=== PATIENT | male | born 1935 | race Caucasian/White ===

== ENCOUNTER 2017-12-19 20:45 | Emergency (ER) | payer OTHER ==
[2017-12-19] MEDS ORDERED: NS 1,000 ML IV ONE (20:54)
--- NOTE | 2017-12-19 20:54 | EDPHY ---
H & P Time Seen by Provider: 12/19/17 20:45 HPI/ROS: CHIEF COMPLAINT: Fever, confusion HISTORY OF PRESENT ILLNESS: The patient is an 82-year-old man with a history of polymyalgia rheumatica on prednisone 7 mg a day. His states that he felt normal this morning and left the house at 3:00 p.m. But when he returned at 5:00 p.m. And had chills and rigors and wanted to take a warm bath. Once he got onto the bath he vomited several times. He was then too weak to get out of the bath. They had to call neighbors to help him out of the bathtub. He was unable to ambulate with his own strength. No focal weakness or deficits. No chest pain or shortness of breath. has noticed some mild abdominal bloating over the last few days but assumed it was from the prednisone. The patient states he did have a normal bowel movement yesterday. No history of abdominal surgery. Severity: Severe Modifying factors: None REVIEW OF SYSTEMS: Constitutional: See HPI EENTM: denies: blurred vision, double vision, nose congestion Respiratory: denies: cough, shortness of breath Cardiac: denies: chest pain, irregular heart rate, lightheadedness, palpitations Gastrointestinal/Abdominal: See HPI Genitourinary: denies: dysuria, frequency, hematuria, pain Musculoskeletal: denies: joint pain, muscle pain Skin: denies: lesions, rash, jaundice, bruising Neurological: denies: headache, numbness, paresthesia, tingling, dizziness, weakness Hematologic/Lymphatic: denies: blood clots, easy bleeding, easy bruising Immunologic/allergic: denies: HIV/AIDS, transplant 10 systems reviewed and negative except as noted EXAM: GENERAL: Warm appearing, slightly confused Well-appearing, well-nourished and in no acute distress. HEAD: Atraumatic, normocephalic. EYES: Pupils equal round and reactive to light, extraocular movements intact, sclera anicteric, conjunctiva are normal. ENT: TMs normal, nares patent, oropharynx clear without exudates. Moist mucous membranes. NECK: Normal range of motion, supple without lymphadenopathy or JVD. LUNGS: Breath sounds clear to auscultation bilaterally and equal. No wheezes rales or rhonchi. HEART: Regular rate and rhythm without murmurs, rubs or gallops. ABDOMEN: Abdomen distended, nontender normoactive bowel sounds. No guarding, no rebound. No masses appreciated. BACK: No CVA tenderness, no spinal tenderness, step-offs or deformities EXTREMITIES: Normal range of motion, no pitting or edema. No clubbing or cyanosis. NEUROLOGICAL: Cranial nerves II through XII grossly intact. Normal speech, normal gait. 5/5 strength, normal movement in all extremities, normal sensation , normal reflexes PSYCH: Answers questions but not exactly correctly. SKIN: Warm, dry, normal turgor, no visible rashes or lesions. Source: Patient, Family, EMS Exam Limitations: No limitations - Medical/Surgical History Hx Asthma: No Hx Chronic Respiratory Disease: No Hx Diabetes: No Hx Cardiac Disease: No Hx Renal Disease: No Hx Cirrhosis: No Hx Alcoholism: No Hx HIV/AIDS: No Hx Splenectomy or Spleen Trauma: No Other PMH: Polymyalgia rheumatica - Family History Significant Family History: No pertinent family hx - Social History Alcohol Use: Sober Drug Use: None Constitutional: Initial Vital Signs Temperature (C) 38.3 C 12/19/17 20:48 Heart Rate 88 12/19/17 20:48 Respiratory Rate 16 12/19/17 20:48 Blood Pressure 160/83 H 12/19/17 20:48 O2 Sat (%) 100 12/19/17 20:48 O2 Delivery Mode Room Air Allergies/Adverse Reactions: No Known Allergies Allergy (Unverified 12/19/17 20:55) Home Medications: Medication Instructions Recorded predniSONE 12/19/17 Medical Decision Making - Diagnostics EKG Interpretation: An EKG obtained and was read and documented in trace view. Please see trace view for full reading and report. Sinus rhythm, no acute ischemic changes Imaging: Discussed imaging studies w/ senior account manager Radiologist Procedures: Procedure: Lumbar puncture. Indication: Fever, headache After verbal informed consent from patient explaining the risks including infection, bleeding, and neurologic damage, a lumbar puncture was performed after the patient was prepped and draped in the usual fashion. The back was anesthetized with 1% lidocaine. Blunt-tipped José Luis needle used. Approximately 4 cc of clear fluid was obtained. Opening pressure was not obtained. There were no complications. The procedure was performed by myself. ED Course/Re-evaluation: 11:00 p.m. the patient's vital signs remained stable. Lab work thus far is looking good. Small amount of blood in his urine likely from the traumatic Platt catheter. No sign of infection. His mental status appears to remain with slight confusion. He remains generally weak. Spoke with [facility] Dr. Pang who will accept in transfer to [facility]. We discussed the imaging and lab results thus far. I do plan to perform a lumbar puncture because we have not found another source for the patient's fever and he did complain of a mild headache. He is on prednisone. Flu result also pending still. Spoke with the patient and family about transfer to [facility] and they agree. 11:40 p.m. patient tolerated lumbar puncture. . He has been accepted at [facility] by Dr. Ramesh. They will send ambulance transfer paperwork completed. Differential Diagnosis: Partial list of the Differential diagnosis considered include but were not limited to; sepsis, urinary tract infection, influenza appendicitis, gastritis and although unlikely based on the history and physical exam, I also considered meningitis, CVA, acute coronary disease. - Data Points Laboratory Results: Laboratory Results 12/19/17 20:45 12/19/17 20:45 Microbiology Results: MICROBIOLOGY 12/19/17 23:38 Cerebral Spinal Fluid Gram Stain - Final Medications Given: Discontinued Medications Acetaminophen (Tylenol) 1,000 mg PO EDNOW ONE Stop: 12/19/17 21:22 Last Admin: 12/19/17 21:56 Dose: Not Given Acetaminophen (Tylenol Rectal) 325 mg AL EDNOW ONE Stop: 12/19/17 22:06 Last Admin: 12/19/17 22:11 Dose: 325 mg Acetaminophen (Tylenol Rectal) 650 mg AL EDNOW ONE Stop: 12/19/17 22:06 Last Admin: 12/19/17 22:11 Dose: 650 mg Sodium Chloride (Ns) 1,000 mls @ 0 mls/hr IV EDNOW ONE; Wide Open PRN Reason: Protocol Stop: 12/19/17 20:55 Last Admin: 12/19/17 21:09 Dose: 1,000 mls Ibuprofen (Motrin) 600 mg PO EDNOW ONE Stop: 12/19/17 21:22 Last Admin: 12/19/17 22:11 Dose: Not Given Ondansetron HCl (Zofran) 4 mg IVP EDNOW ONE Stop: 12/19/17 23:18 Last Admin: 12/19/17 23:00 Dose: 4 mg Ondansetron HCl (Zofran) 4 mg IVP EDNOW ONE Stop: 12/19/17 23:18 Last Admin: 12/20/17 00:58 Dose: Not Given Point of Care Test Results: Chemistry 12/19/17 21:49 POC Troponin I 0.02 ng/mL ng/mL (0.00-0.08) Departure - Departure Disposition: [facility] Clinical Impression: Generalized weakness Fever Qualifiers: Fever type: unspecified Qualified Code(s): R50.9 - Fever, unspecified Vomiting Qualifiers: Vomiting type: unspecified Vomiting Intractability: non-intractable Nausea presence: with nausea Qualified Code(s): R11.2 - Nausea with vomiting, unspecified Condition: Fair Referrals: Patient,NotPresent [Unknown] - As per Instructions
[2017-12-19] MEDS ORDERED: IOPAMIDOL (ISOVUE-300) 100 ML BTL ONE (21:17)
[2017-12-19] MEDS ORDERED: ACETAMINOPHEN 500 MG TAB PO ONE (21:21)
[2017-12-19] MEDS ORDERED: IBUPROFEN 600 MG TAB PO ONE (21:21)
[2017-12-19 21:22] LABS: INR 1.01 (0.83-1.16); PROTIME(PATIENT) 13.5 SEC (12.0-15.0)
[2017-12-19 21:23] LABS: PLATELET COUNT 134 10^3/uL (150-400)
--- NOTE | 2017-12-19 21:23 | CPEKG ---
Test Reason : OPEN Blood Pressure : / mmHG Vent. Rate : 084 BPM Atrial Rate : 083 BPM P-R Int : 177 ms QRS Dur : 094 ms QT Int : 364 ms P-R-T Axes : 011 -38 070 degrees QTc Int : 431 ms Sinus rhythm Left axis deviation Confirmed by Jamie Kasper ([id number]) on 12/19/2017 9:23:26 PM Referred By: Confirmed By:Jamie Kasper
[2017-12-19] MEDS ORDERED: ACETAMINOPHEN 325 MG SUPP PR ONE (22:05)
[2017-12-19] MEDS ORDERED: ACETAMINOPHEN 650 MG SUPP PR ONE (22:05)
[2017-12-19] MEDS ORDERED: LIDOCAINE 2% JELLY 20 ML (UROJECT) ONE ×2 (22:15→22:19)
[2017-12-19] MEDS ORDERED: ONDANSETRON 4 MG/2 ML VIAL ONE (23:16)
[2017-12-19] MEDS ORDERED: ONDANSETRON 4 MG/2 ML VIAL IVP ONE ×2 (23:17)
[2017-12-20 00:55] VITALS: BP 121/57
== END 2017-12-20 01:08 | disposition short-term general hospital (02) ==
LOC: EDUNIT#
PROC: 009U3ZX Drainage of Spinal Canal, Percutaneous Approach, Diagnostic (ICD-10-PCS; principal; 2017-12-19)
DX: R50.9 Fever, unspecified (principal); R11.2 Nausea with vomiting, unspecified; M35.3 Polymyalgia rheumatica; Z79.52 Long term (current) use of systemic steroids
CPT/HCPCS: 62270; 70450; 71046; 74177; 93005; 96361; 96374; 99285; J2405; Q9967; 84484-PO